=== PATIENT | female | born 1960 | race Caucasian/White ===

== ENCOUNTER 2018-01-10 08:44 | Emergency (ER) | payer BC ==
[2018-01-10] MEDS ORDERED: Alum Hydrox/Mag Hydrox/Simeth 30 ML, Lidocaine 2% 15 ML PO ONE ×2 (09:28)
--- NOTE | 2018-01-10 09:37 | EDM.PDOC ---
<Sierra Schneider - Last Filed: 01/10/18 10:12> ED HPI GENERAL MEDICAL PROBLEM - General Chief Complaint: Abdominal Pain Stated Complaint: L SIDE PAIN Time Seen by Provider: 01/10/18 09:17 Source of Information: Reports: Patient History Limitations: Reports: No Limitations - History of Present Illness INITIAL COMMENTS - FREE TEXT/NARRATIVE: 57 yo female presents to ED for LUQ pain x 2 days. She has a history of chronic constipation and GERD. She was camping over the weekend and admits to a poor diet which may be contributing to her symptoms. She reports taking a stool softener and metamucil last night after feeling the pain yesterday. Today she believes the pain is much worse, it is very mild at rest but worsens with any movement. She is unable to bend over due to pain. She had a bowel movement 15 minutes ago which she reports as normal for her. She denies urinary symptoms, fever, chills, malaise, nausea or vomiting. 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 [Unable to Verify Home Med List] 01/10/18 [History] ED ROS GENERAL - Review of Systems Review Of Systems: See Below Constitutional: Reports: No Symptoms. Denies: Fever, Chills, Malaise HEENT: Reports: No Symptoms Respiratory: Reports: No Symptoms. Denies: Shortness of Breath, Cough Cardiovascular: Reports: No Symptoms. Denies: Chest Pain Endocrine: Reports: No Symptoms GI/Abdominal: Reports: Abdominal Pain (LUQ cramping pain), Constipation (chronic ). Denies: Bloody Stool, Diarrhea, Nausea, Vomiting : Reports: No Symptoms. Denies: Dysuria, Flank Pain, Frequency, Urgency Musculoskeletal: Reports: No Symptoms Skin: Reports: No Symptoms Neurological: Reports: No Symptoms Psychiatric: Reports: No Symptoms Hematologic/Lymphatic: Reports: No Symptoms Immunologic: Reports: No Symptoms ED EXAM, GI/ABD - Physical Exam Exam: See Below Exam Limited By: No Limitations General Appearance: Alert, WD/WN, No Apparent Distress Ears: Normal External Exam, Hearing Grossly Normal Head: Atraumatic, Normocephalic Neck: Normal Inspection, Supple, Full Range of Motion Respiratory/Chest: No Respiratory Distress, Lungs Clear, Normal Breath Sounds, No Accessory Muscle Use, Chest Non-Tender Cardiovascular: Normal Peripheral Pulses, Regular Rate, Rhythm, No Gallop, No JVD, No Murmur, No Rub GI/Abdominal Exam: Normal Bowel Sounds, Soft, No Distention, Tender (LUQ) Extremities: Normal Inspection, Normal Range of Motion, Pedal Edema (minimal, nonpitting, L>R) Neurological: Alert, Oriented, Normal Gait, No Motor/Sensory Deficits Psychiatric: Normal Affect, Normal Mood Skin Exam: Warm, Dry, Intact, Normal Color Course - Vital Signs Last Recorded V/S: Last Vital Signs Temp 99.0 F 01/10/18 09:13 Pulse 76 01/10/18 09:13 Resp 16 01/10/18 09:13 BP 124/82 01/10/18 09:13 Pulse Ox 98 01/10/18 09:13 - Orders/Labs/Meds Orders: Active Orders 24 hr Category Date Time Status Magnesium Citrate [Citrate of Magnesia] Med 01/10/18 11:14 Once 100 ml PO ONETIME ONE Labs: Laboratory Tests 01/10/18 01/10/18 Range/Units 09:45 09:45 WBC 7.37 (3.98-10.04) K/mm3 RBC 4.64 (3.98-5.22) M/mm3 Hgb 13.0 (11.2-15.7) gm/L Hct 40.0 (34.1-44.9) % MCV 86.2 (79.4-94.8) fl MCH 28.0 (25.6-32.2) pg MCHC 32.5 (32.2-35.5) g/dl RDW Std Deviation 42.7 (36.4-46.3) fL Plt Count 206 (182-369) K/mm3 MPV 10.9 (9.4-12.3) fl Neut % (Auto) 68.5 (34.0-71.1) % Lymph % (Auto) 20.5 (19.3-51.7) % Hall % (Auto) 7.5 (4.7-12.5) % Eos % (Auto) 3.1 (0.7-5.8) Baso % (Auto) 0.3 (0.1-1.2) % Neut # (Auto) 5.05 (1.56-6.13) K/mm3 Lymph # (Auto) 1.51 (1.18-3.74) K/mm3 Hall # (Auto) 0.55 H (0.24-0.36) K/mm3 Eos # (Auto) 0.23 (0.04-0.36) K/mm3 Baso # (Auto) 0.02 (0.01-0.08) K/mm3 Sodium 142 (136-145) mEq/L Potassium 3.8 (3.5-5.1) mEq/L Chloride 107 (98-107) mEq/L Carbon Dioxide 27 (21-32) mEq/L Anion Gap 11.8 (5-15) BUN 14 (7-18) mg/dL Creatinine 0.9 (0.55-1.02) mg/dL Est Cr Clr Drug Dosing 53.23 mL/min Estimated GFR (MDRD) > 60 (>60) mL/min BUN/Creatinine Ratio 15.6 (14-18) Glucose 96 (74-106) mg/dL Calcium 8.5 (8.5-10.1) mg/dL Total Bilirubin 0.6 (0.2-1.0) mg/dL AST 24 (15-37) U/L ALT 37 (14-59) U/L Alkaline Phosphatase 82 (46-116) U/L Total Protein 6.9 (6.4-8.2) g/dl Albumin 3.4 (3.4-5.0) g/dl Globulin 3.5 gm/dL Albumin/Globulin Ratio 1.0 (1-2) Lipase 90 (73-393) U/L Meds: Medications Discontinued Medications Generic Name Dose Route Start Last Admin Trade Name Freq PRN Reason Stop Dose Admin Al Hydroxide/Mg Hydroxide 30 0 ml 01/10/18 09:28 01/10/18 09:35 ml/ Lidocaine HCl 15 ml PO 01/10/18 09:29 45 ml ONETIME ONE Administration Departure - Departure Disposition: Home, Self-Care 01 Clinical Impression: Constipation Qualifiers: Constipation type: other constipation type Qualified Code(s): K59.09 - Other constipation - Discharge Information Referrals: Kahte Harrison MD [Primary Care Provider] - 1 Week Forms: ED Department Discharge Additional Instructions: If you do not have a bowel movement in a few hours you can take the rest of the bottle. Take pepcid daily for 5 days. Follow up with your doctor within 1 week. Please return if you are worse. - My Orders Last 24 Hours: My Active Orders 01/10/18 11:14 Magnesium Citrate [Citrate of Magnesia] 100 ml PO ONETIME ONE - Assessment/Plan Last 24 Hours: My Active Orders 01/10/18 11:14 Magnesium Citrate [Citrate of Magnesia] 100 ml PO ONETIME ONE <Teo Holloway - Last Filed: 01/10/18 11:20> Course - Re-Assessments/Exams Free Text/Narrative Re-Assessment/Exam: 01/10/18 11:15 Her CBC and CMP look good. Her abdominal x-ray shows moderate amount of stool. I will give her a dose of magensium citrate and have her clean out and have her take pepcid for a few days. Departure - Departure Time of Disposition: 11:20 Condition: Good
--- NOTE | 2018-01-10 11:04 | CR ---
Abdomen: Supine view of the abdomen was obtained. Comparison: No prior abdominal x-ray. Bowel gas pattern appears normal. Calcification is noted within the left pelvis most likely due to phlebolith. Bony structures are within normal limits for the patient's age. Impression: 1. Incidental findings. Diagnostic code #2
[2018-01-10] MEDS ORDERED: Magnesium Citrate Solution 296 ML Bottle PO ONE (11:14)
== END 2018-01-10 11:34 | disposition home or self-care (01) ==
LOC: JD.ED 08:44
DX: K59.09 Other constipation (principal); Z88.1 Allergy status to other antibiotic agents
CPT/HCPCS: 36415; 74018; 80053; 83690; 85025; 99284; A9270; 99283

== ENCOUNTER 2020-06-07 10:23 | Emergency (ER) | payer BC, MEDICAID, OTHER ==
--- NOTE | 2020-06-07 11:29 | EDM.PDOC ---
ED HPI GENERAL MEDICAL PROBLEM - General Chief Complaint: Lower Extremity Injury/Pain Stated Complaint: L KNEE PAIN Time Seen by Provider: 06/07/20 11:03 Source of Information: Reports: Patient, RN Notes Reviewed History Limitations: Reports: No Limitations - History of Present Illness INITIAL COMMENTS - FREE TEXT/NARRATIVE: Patient is a 60-year-old female who presents to the ED for the evaluation of her left knee pain. Patient notes that this started roughly 2 weeks ago, during her trip to [place]. She states that she flew down to [place] to visit family. She notes that when she is at rest, the pain is a 1 out of 10, but any sort of bending motion to the knee like squatting, getting up and down from vehicles, or going up or down stairs, her pain immediately intensifies to a 9 out of 10. She denies any injury to the knee, she states it feels like it may have hyperextended, however she notes this did not happen. She states the pain has been pretty intense at night and disturbing her sleep. She states that this morning, it gave out on her, and feels generally weak. She has not used any Tylenol or ibuprofen at home. She denies any numbness or tingling into the toes. She notes that she bought a cheap brace at [facility], and it felt better with the brace on. Her primary care provider is Dr. Harrison at [facility]. Patient denies any other sick-like symptoms, fever/chills, cough/shortness of breath, nausea/vomiting/diarrhea. Left Knee Pain Score (Numeric/FACES): 1 - Related Data Allergies Allergy/AdvReac Type Severity Reaction Status Date / Time erythromycin base Allergy Nausea and Verified 06/07/20 10:35 Vomiting Home Meds: Home Meds . 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 ED EXAM, GENERAL - Physical Exam Exam: See Below Exam Limited By: No Limitations General Appearance: Alert, WD/WN, No Apparent Distress Respiratory/Chest: No Respiratory Distress, Lungs Clear, Normal Breath Sounds, No Accessory Muscle Use, Chest Non-Tender Cardiovascular: Normal Peripheral Pulses, Regular Rate, Rhythm, No Edema, No Murmur Peripheral Pulses: 2+: Dorsalis Pedis (L), Dorsalis Pedis (R) Extremities: Normal Inspection, Normal Range of Motion, Non-Tender, Normal Capillary Refill. No: Aba's Sign Neurological: Alert, Oriented, Normal Cognition, No Motor/Sensory Deficits Psychiatric: Normal Affect, Normal Mood Skin Exam: Warm, Dry, Intact, Normal Color, No Rash Course - Vital Signs Last Recorded V/S: Last Vital Signs Temp 97.3 F 06/07/20 10:33 Pulse 89 06/07/20 10:33 Resp BP 127/80 06/07/20 10:33 Pulse Ox - Orders/Labs/Meds Orders: Active Orders 24 hr Category Date Time Status VL Duplex Lwr Ext Veins Ltd Lt [US] Stat Exams 06/07/20 11:23 Ordered - Re-Assessments/Exams Free Text/Narrative Re-Assessment/Exam: 06/07/20 11:28 Patient presents to the ED for evaluation of her left knee pain. Since she did have recent travel to [place], the pain started after this, we will do ultrasound for today's purposes to rule out a blood clot. 06/07/20 12:20 The patient's ultrasound has been completed, there is no sign of a DVT. There are 2 small Reynolds's cyst identified in the popliteal fossa of the left leg, one measures 2.9 x 1.8 x 0.7 cm, and the other is 3.4 x 1.5 x 0.5 cm. We will have her follow-up with her regular care provider, for possible steroid injection, and will give her general conservative management recommendations at this time. Departure - Departure Time of Disposition: 12:21 Disposition: Home, Self-Care 01 Condition: Good Clinical Impression: Reynolds's cyst of knee Qualifiers: Laterality: left Qualified Code(s): M71.22 - Synovial cyst of popliteal space [Reynolds], left knee - Discharge Information *PRESCRIPTION DRUG MONITORING PROGRAM REVIEWED*: No *COPY OF PRESCRIPTION DRUG MONITORING REPORT IN PATIENT JAGDISH: No Instructions: Reynolds Cyst Referrals: Kathe Harrison MD [Primary Care Provider] - Forms: ED Department Discharge Additional Instructions: You have been evaluated in the ED for your left knee pain. Your ultrasound demonstrated that you do have a Reynolds's cyst in the back of your knee. General management of the is may require steroid injection of the knee, this is not something that we can do out of the ER, and I have you follow-up with your regular care provider for further management. Please use ice as tolerated to the affected area. Please try to elevate the affected area to relieve swelling. You may compress the area with Quirino wraps, or your knee sleeve that you had purchased previously at [facility] for pain control if this helps. You may take Tylenol 500 mg or ibuprofen 600mg q6 hrs for pain relief. Please do so until you have a tolerable level of pain with activity. Do not exceed 4000mg Tylenol or 3200mg ibuprofen in a 24 hour time period. Please return to ED if your symptoms should change or worsen. Sepsis Event Note (ED) - Evaluation Sepsis Screening Result: No Definite Risk - Focused Exam Vital Signs: Vital Signs Temp Pulse BP 06/07/20 10:33 97.3 F 89 127/80 - My Orders Last 24 Hours: My Active Orders 06/07/20 11:23 VL Duplex Lwr Ext Veins Ltd Lt [US] Stat - Assessment/Plan Last 24 Hours: My Active Orders 06/07/20 11:23 VL Duplex Lwr Ext Veins Ltd Lt [US] Stat
--- NOTE | 2020-06-09 09:18 | US ---
PROCEDURE INFORMATION: Exam: US Duplex Left Lower Extremity Veins, Limited Exam date and time: 06/07/2020 11:52 AM Age: 60 years old Clinical indication: Leg, lower; Patient HX: Left pop fossa pain x2 weeks TECHNIQUE: Imaging protocol: Real-time Duplex ultrasound of the Left Lower Extremity with 2-D orozco scale, color Doppler flow and spectral waveform analysis with image documentation. Limited exam focused on the left lower extremity veins. COMPARISON: No relevant prior studies available. FINDINGS: Left deep veins: Unremarkable. The common femoral, femoral, proximal profunda femoral and popliteal veins are patent without thrombus. Normal Doppler waveforms. Normal compressibility and/or augmentation response. Left superficial veins: Unremarkable. Saphenofemoral junction is patent without thrombus. Soft tissues: 2 small Reynolds's cysts identified in the popliteal fossa measuring 2.9 x 1.8 x 0.7 cm and 3.4 x 1.5 x 0.5 cm. IMPRESSION: No evidence of deep vein thrombosis. Thank you for allowing us to participate in the care of your patient. Dictated and Authenticated by: Jett Diallo MD 06/07/2020 1:17 PM Central Time ([place] & [place]) CLAUDIA
== END 2020-06-07 12:35 | disposition home or self-care (01) ==
LOC: JD.ED 10:23
DX: M71.22 Synovial cyst of popliteal space [Baker], left knee (principal); Z87.891 Personal history of nicotine dependence; Z88.1 Allergy status to other antibiotic agents
CPT/HCPCS: 93971-26-LT; 93971-LT; 99282; 99283-25

== ENCOUNTER 2023-04-30 14:56 | Emergency (ER) | payer BC, OTHER ==
[2023-04-30] MEDS ORDERED: Sodium Chloride 0.9% 10 ML Syringe FLUSH PRN (15:18)
[2023-04-30] MEDS ORDERED: Aspirin 81 MG Tab.Chew PO ONE (15:18)
[2023-04-30 15:48] LABS: BASOPHILS ABSOLUTE AUTO 0.1 K/mm3 (0.0-0.2); BASOPHILS PERCENT AUTO 0.5 % (0.0-1.0); EOSINOPHILS ABSOLUTE AUTO 0.2 K/mm3 (0.0-0.4); EOSINOPHILS PERCENT AUTO 2.1 % (0.0-6.0); HEMATOCRIT 40.9 % (37.0-47.0); HEMOGLOBIN 13.5 gm/dl (12.0-16.0); IMMATURE GRAN ABSOLUTE AUTO 0.02 K/mm3 (0.00-0.05); IMMATURE GRAN PERCENT AUTO 0.2 % (0.0-0.4); LYMPHOCYTES ABSOLUTE AUTO 2.1 K/mm3 (1.0-4.8); LYMPHOCYTES PERCENT AUTO 21.3 % (24.0-44.0); MEAN CORPUSCULAR HEMOGLOBIN 29.8 pg (28.0-32.0); MEAN CORPUSCULAR VOLUME 90.3 fl (83.0-99.0); MONOCYTES ABSOLUTE AUTO 0.7 K/mm3 (0.0-0.8); MONOCYTES PERCENT AUTO 6.6 % (0.0-8.0); NEUTROPHILS ABSOLUTE AUTO 6.9 K/mm3 (1.8-7.7); NEUTROPHILS PERCENT AUTO 69.3 % (41.0-71.0); PLATELET COUNT,PLT 211 K/mm3 (150-400); RED BLOOD CELL COUNT 4.53 M/mm3 (4.10-5.30); WHITE BLOOD CELL COUNT,WBC 9.95 K/mm3 (3.9-11.3)
[2023-04-30 15:55] LABS: A/G RATIO 1.1 (1-2); ALBUMIN 3.7 g/dl (3.4-5.0); ANION GAP 12.8 (5-15); BILIRUBIN TOTAL 0.3 mg/dL (0.2-1.0); BUN/CREATININE RATIO 11.8 (14-18); CALCIUM 8.9 mg/dL (8.5-10.1); CREATININE 1.1 mg/dL (0.55-1.02); EST CRCL DRUG DOSING (CG) 38.48 mL/min; POTASSIUM,K 3.8 mEq/L (3.5-5.1); PROTEIN TOTAL,TP 7.2 g/dl (6.4-8.2)
== END 2023-04-30 17:35 | disposition home or self-care (01) ==
LOC: JD.ED 14:56
DX: R07.89 Other chest pain (principal); Z88.1 Allergy status to other antibiotic agents
CPT/HCPCS: 36415; 71045; 80053; 84484; 85025; 85379; 93005; 99285; A9270; J3490; 93010; 99284